=== PATIENT | female | born 1960 | race Caucasian/White ===

== ENCOUNTER 2020-07-09 01:04 | Emergency (ER) | payer OTHER ==
[~2020-07-09] VITALS: Ht 172.7 cm; Wt 74.8 kg
[~2020-07-09 01:04] MED LIST: OXYACE5T PO; VALS80 PO; VALSARTAN-HCTZ1 EAC4 PO; ZONI100 PO
[2020-07-09] MEDS ORDERED: VERA180ERB PO (01:25)
[2020-07-09] MEDS ORDERED: Inderal40 MG (01:26)
[2020-07-09] MEDS ORDERED: LOSA25 (01:26)
[2020-07-09 01:29] LABS: BASOPHILS ABSOLUTE AUTO 0.07 K/mm3 (0.00-0.23); BASOPHILS PERCENT AUTO 1 % (0-2); EOSINOPHILS ABSOLUTE AUTO 0.15 K/mm3 (0.00-0.68); EOSINOPHILS PERCENT AUTO 2 % (0-6); Hematocrit 38.4 % (33.0-51.0); Hemoglobin 13.3 g/dL (11.5-16.0); IMMATURE GRAN ABSOLUTE AUTO 0.02 K/mm3 (0.00-0.10); IMMATURE GRAN PERCENT AUTO 0 % (0-1); LYMPHOCYTES ABSOLUTE AUTO 5.31 K/mm3 (0.84-5.20); LYMPHOCYTES PERCENT AUTO 60 % (21-46); MONOCYTES ABSOLUTE AUTO 0.69 K/mm3 (0.16-1.47); MONOCYTES PERCENT AUTO 8 % (4-13); Mean Corpuscular HGB 31.1 pg (26.0-34.0); Mean Corpuscular HGB Conc 34.6 g/dL (31.5-36.5); Mean Corpuscular Volume 90 fL (80-100); Mean Platelet Volume 9.6 fL (9.1-12.4); NEUTROPHILS ABSOLUTE AUTO 2.62 K/mm3 (1.96-9.15); NEUTROPHILS PERCENT AUTO 30 % (41-73); Platelet Count 286 K/mm3 (150-400); RDW Standard Deviation 39.2 fL (35.1-46.3); Red Blood Cell Count 4.27 M/mm3 (3.80-5.20); White Blood Cell Count 8.86 K/mm3 (4.00-11.30)
[2020-07-09 01:43] LABS: Alanine Aminotransfer (ALT/SGP 54 U/L (12-78); Albumin, Blood 3.8 g/dL (3.4-5.0); Albumin/Globulin Ratio 1.3 (0.8-1.8); Alk Phos 70 U/L (50-136); Anion Gap 15 mmol/L (6-16); Aspartate Aminotrans (AST/SGOT 25 U/L (12-37); Bilirubin, Total 0.8 mg/dL (0.1-1.0); Blood Urea Nitrogen 12 mg/dL (8-24); Bun/Creatinine Ratio 14.6 (12.0-20.0); CO2, Blood 23 mmol/L (21-32); Calcium, Blood 10.1 mg/dL (8.5-10.1); Chloride, Blood 102 mmol/L (98-108); Creatinine, Blood 0.82 mg/dL (0.40-1.00); Glomerular Filtration Rate >60 (60-); Glucose, Blood 110 mg/dL (70-99); Potassium, Blood 2.8 mmol/L (3.5-5.5); Sodium, Blood 140 mmol/L (136-145); Total Protein, Blood 6.8 g/dL (6.4-8.2); Troponin I <0.015 ng/mL (0.000-0.040)
[2020-07-09] MEDS ORDERED: K-Dur20 MEQ PO (04:47)
== END 2020-07-09 05:07 | disposition home or self-care (01) ==
LOC: ER 01:04
PROVIDERS: Student in an Organized Health Care Education/Training Program
DX: R55 Syncope and collapse (principal); E87.6 Hypokalemia; I10 Essential (primary) hypertension; Z79.899 Other long term (current) drug therapy
CPT/HCPCS: 80053; 84484; 85025; 93005; 93010; 96360; 99285-25; A9270; J7030

== ENCOUNTER → 2021-03-07 | Outpatient (CLI) | payer OTHER ==
[~2021-03-07] MED LIST changes: +Inderal40 MG; +K-Dur20 MEQ PO; +LOSA25; +VERA180ERB PO
[2021-03-12 13:08] LABS: HPV 16 Negative (Negative); HPV 18 Negative (Negative); HPV OTHER HR TYPES Negative (Negative)
== END | disposition home or self-care (01) ==
LOC: LAB 18:06 → LAB SHORT 18:06
PROVIDERS: Obstetrics & Gynecology
DX: Z12.4 Encounter for screening for malignant neoplasm of cervix (principal)
CPT/HCPCS: 87624; G0123

== ENCOUNTER 2022-07-03 07:09 | Day surgery (SDC) | payer OTHER ==
[~2022-07-03] VITALS: Ht 172.7 cm; Wt 78.3 kg
[~2022-07-03 07:09] MED LIST changes: +CLIMARA1 EACH TOP; -LOSA25; +LOSA25 PO
--- NOTE | 2022-07-03 08:06 | NUR ---
07/03/22 0806 Lisbeth Gunderson HISTORY, CHART, MEDICATIONS AND ALLERGIES REVIEWED BEFORE START OF PROCEDURE. PATIENT CONFIRMS NPO STATUS AND AGREES WITH SCHEDULED PROCEDURE. 3-LEAD EKG REVIEWED WITH PHYSICIAN PRIOR TO START OF PROCEDURE. MONITOR INTACT WITH CONTINUOUS PULSE OXIMETRY,CAPNOGRAPHY, 3-LEAD EKG, INTERMITTENT BP. SUPPLEMENTAL O2 TO BE TITRATED THROUGHOUT PROCEDURE TO MAINTAIN O2 SATURATION ABOVE 90%. PATIENT DETERMINED TO BE ASA APPROPRIATE FOR PROPOFOL SEDATION PRIOR TO START OF PROCEDURE BY
--- NOTE | 2022-07-03 09:20 | NUR ---
Patient up to Ambulate independently. Gait steady. Discharge instructions reviewed with patient. Patient verbalizes understanding. Copy given to patient to take home. Patient States Post-Procedure ride home has been arranged. Discharged via wheelchair to private car for ride home. PT BELONGINGS RETURNED TO PT.
== END 2022-07-03 09:23 | disposition home or self-care (01) ==
LOC: ORSCMMR 07:09 → ORD 08:00 → ORSCMMR 09:23
PROVIDERS: Internal Medicine Gastroenterology
PROC: 0DJD8ZZ Inspection of Lower Intestinal Tract, Via Natural or Artificial Opening Endoscopic (ICD-10-PCS; principal; 2022-07-03 08:00)
DX: Z12.11 Encounter for screening for malignant neoplasm of colon (principal); Z86.010 Personal history of colon polyps; K57.30 Diverticulosis of large intestine without perforation or abscess without bleeding; I10 Essential (primary) hypertension; Z79.899 Other long term (current) drug therapy
CPT/HCPCS: 74018; J0461; J2704; J7120

== ENCOUNTER 2025-02-01 11:13 | Day surgery (SDC) | payer OTHER ==
[2025-02-01] VITALS (12 sets, daily range): BP systolic 95–118; BP diastolic 63–87
[~2025-02-01] VITALS: Ht 167.6 cm; Wt 81.1 kg
[~2025-02-01 11:13] MED LIST changes: +IBUP200 PO; -LOSA25 PO; +LOSARTAN POTAS100 M1 PO; +SUMA25 PO; +Vitamin B Comple1 EA PO
[2025-02-01] MEDS ORDERED: CeFAZolin Sodium 2,000 MG in NS 100 ML IV SCH ×2 (11:35→23:30)
[2025-02-01] MEDS ORDERED: Chlorhexidine Mouth Care 15 ML UDC MT SCH (11:35)
[2025-02-01] MEDS ORDERED: Ropivacaine 0.5% HCl/Pf 123.125 MG,EPINEPHrine HCL 0.25 MG,Ketorolac Tromethamine 15 MG... INFIL SCH (11:35)
[2025-02-01] MEDS ORDERED: Tranexamic Acid 100 ML IV SCH (11:41)
[2025-02-01] MEDS ORDERED: HYDROmorphone HCl/Pf 1MG SYR IV PRN (14:50)
[2025-02-01] MEDS ORDERED: Ondansetron HCl 2 MG / ML 2ML Vial IV PRN (14:50)
[2025-02-01] MEDS ORDERED: FLU VACC TS2025-26(6MOS UP)/PF 45 MCG/0.5 ML SYRINGE IM SCH (14:50)
[2025-02-01] MEDS ORDERED: Magnesium Hydroxide Conc 10 ML UDC PO PRN (14:50)
[2025-02-01] MEDS ORDERED: Metoclopramide HCl 5MG / ML 2ML Vial IV PRN (14:50)
[2025-02-01] MEDS ORDERED: Prochlorperazine Edisylate 10 mg Vial IV PRN (14:55)
[2025-02-01] MEDS ORDERED: Midazolam HCl 1MG / ML 2ML Vial ONE ×2 (15:11→15:15)
[2025-02-01] MEDS ORDERED: FentaNYL Citrate 50 MCG/ML 2 ML Injection ONE ×2 (15:11→17:30)
[2025-02-01] MEDS ORDERED: Dexamethasone Sod Phos 10 MG/ML 1ML VIAL ONE (15:23)
[2025-02-01] MEDS ORDERED: Ondansetron HCl 2 MG / ML 2ML Vial ONE (15:23)
[2025-02-01] MEDS ORDERED: HYDROmorphone HCl/Pf 1MG SYR ONE (16:59)
[2025-02-01] MEDS ORDERED: Sugammadex Sodium 200 MG/2ML SDV (100 MG/ML) ONE (17:22)
[2025-02-01] MEDS ORDERED: Ketorolac Tromethamine 15mg Vial IV SCH (18:00)
[2025-02-02 04:49] VITALS: BP 121/70
[2025-02-02 06:40] LABS: BASOPHILS ABSOLUTE AUTO 0.02 K/mm3 (0.00-0.23); BASOPHILS PERCENT AUTO 0 % (0-2); EOSINOPHILS ABSOLUTE AUTO 0.00 K/mm3 (0.00-0.68); EOSINOPHILS PERCENT AUTO 0 % (0-6); Hematocrit 37.5 % (33.0-51.0); Hemoglobin 12.4 g/dL (11.5-16.0); IMMATURE GRAN ABSOLUTE AUTO 0.04 K/mm3 (0.00-0.10); IMMATURE GRAN PERCENT AUTO 0 % (0-1); LYMPHOCYTES ABSOLUTE AUTO 0.77 K/mm3 (0.84-5.20); LYMPHOCYTES PERCENT AUTO 6 % (21-46); MONOCYTES ABSOLUTE AUTO 0.51 K/mm3 (0.16-1.47); MONOCYTES PERCENT AUTO 4 % (4-13); Mean Corpuscular HGB Conc 33.1 g/dL (31.5-36.5); Mean Corpuscular Volume 97 fL (80-100); NEUTROPHILS ABSOLUTE AUTO 10.80 K/mm3 (1.96-9.15); NEUTROPHILS PERCENT AUTO 89 % (41-73); NRBC ABSOLUTE 0.00 K/mm3 (0.00-0.02); NRBC Auto 0.0 /100 WBC (0.0-0.2); Platelet Count 228 K/mm3 (150-400); RDW Coefficient Variation 11.7 % (11.7-14.2); RDW Standard Deviation 41.5 fL (35.1-46.3)
--- NOTE | 2025-02-02 06:50 | NUR ---
SHIFT SUMMARY POD 1 TOTAL R HIP ARTHROPLASTY. PAIN MANAGED PER EMAR. DRESSING C/D/I. POLAR PACK IN PLACE. SBA W/ FWW. PT C/O INCREASED NAUSEA THROUGHOUT SHIFT. MEDICATED AND MANAGED PER EMAR. PLAN TO DISCHARGE TODAY. CALL LIGHT WITHIN REACH.
[2025-02-02 07:19] LABS: Anion Gap 5.0 mmol/L (3-11); Blood Urea Nitrogen 12.0 mg/dL (8-24); CO2, Blood 27.0 mmol/L (21-32); Calcium, Blood 9.7 mg/dL (8.5-10.1); Chloride, Blood 106.0 mmol/L (98-108); Creatinine, Blood 0.44 mg/dL (0.40-1.00); Glucose, Blood 167.0 mg/dL (70-99); Magnesium, Blood 2.1 mg/dL (1.6-2.4); Potassium, Blood 4.0 mmol/L (3.5-5.5); Sodium, Blood 134.0 mmol/L (136-145)
[2025-02-02 07:20] VITALS: BP 110/68
[2025-02-02] MEDS ORDERED: ACET500 PO (08:39)
[2025-02-02] MEDS ORDERED: ASPI81CH PO (08:39)
[2025-02-02] MEDS ORDERED: OXAYDO5 M1 PO (08:40)
[2025-02-02] MEDS ORDERED: ONDA4ODT MM (08:41)
[2025-02-02] MEDS ORDERED: Vitamin B Complex 1 EA Softgel PO SCH (09:00)
[2025-02-02 09:57] VITALS: BP 108/78
--- NOTE | 2025-02-02 10:16 | NUR ---
DISCHARGE NOTE A/OX4 ABLE TO MAKE NEEDS KNOWN. PT WAS AMBULATING SBA W/ FWW FOR SAFETY. TOLERATING INTAKE AND VOIDING WELL. NO NAUSEA T/O THIS SHIFT. PT AND SPOUSE VERABLIZED UNDERSTANDING OF D/C INSTRUCTIONS. ESCORTED OUT VIA WC. PAIN MANAGED PER EMAR.
== END 2025-02-02 10:10 | disposition home or self-care (01) ==
LOC: ORSCMMR 11:13 → ORD 14:30 → ORSCMMR 14:30 → SURS 18:20 → ORSCMMR 02-02 10:10
PROVIDERS: Orthopaedic Surgery
PROC: 0SR90JA Replacement of Right Hip Joint with Synthetic Substitute, Uncemented, Open Approach (ICD-10-PCS; principal; 2025-02-01 14:30)
DX: M16.11 Unilateral primary osteoarthritis, right hip (principal); I10 Essential (primary) hypertension; K21.9 Gastro-esophageal reflux disease without esophagitis; Z79.899 Other long term (current) drug therapy
CPT/HCPCS: 36415; 72170; 80048; 83735; 85025; 97110; 97116; 97162; 97165; 97530; 97535; A9270; C1713; C1776; J0166; J0690; J0735; J0780; J1100; J1171; J1885; J2250; J2405; J2704; J2795; J3010; J7120